=== PATIENT | female | born 1980 | race Caucasian/White ===

== ENCOUNTER 2016-09-15 00:23 | Emergency (ER) | payer MEDICARE, MEDICAID ==
--- NOTE | 2016-09-18 19:04 | ER ---
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 The patient states she had previous rashes and has been told that she has some allergy and she says that the rashes are mildly pruritic and she says that she is already on prednisone by urgent care since yesterday and it did not resolve the rashes. The patient denies any recent travel, any tick bite, and denies any joint pain or swelling. PHYSICAL EXAMINATION: VITAL SIGNS: The patient is afebrile. Vitals are stable. GENERAL: The patient is in no acute pain or distress. The patient is nontoxic. HEENT: Normal. There is no erythema or rash inside oropharynx. MUSCULOSKELETAL: In the trunk anterior and posterior, there is diffuse maculopapular rash, which is blanching and also some scattered rash on the upper and lower extremities. There are a few maculopapular rashes on the left palm too. CHEST: Normal clear bilateral breath sounds. HEART: Normal heart sounds. There are is no murmurs in the heart. ABDOMEN: Soft. There is no pulsatile mass in the abdomen. NECK: Soft, and negative meningismus signs. NEUROLOGICAL: Normal grossly. EMERGENCY ROOM COURSE: RPR was sent for the patient considering involvement of the palms. The patient is already on prednisone and Zyrtec and was advised to continue taking prednisone and follow up with the primary doctor and quite possibly track superintendent. At this stage, allergy reaction versus other causes like pityriasis rosea and even the infectious causes like Lyme and [place] spotted fever and even syphilis are during our differentials. The patient is stable and nontoxic and can be followed up as an outpatient. Ty Roberts MD/ kelly JOB #: [id number] CC: Ty Roberts MD, Attending Physician Joslyn Damon MD, Family Physician
== END 2016-09-15 01:22 | disposition home or self-care (01) ==
LOC: ER 00:23
DX: R21 Rash and other nonspecific skin eruption (principal); E03.9 Hypothyroidism, unspecified; Z98.890 Other specified postprocedural states; Z87.892 Personal history of anaphylaxis; Z79.899 Other long term (current) drug therapy

== ENCOUNTER → 2016-10-09 | Outpatient (CLI) | payer MEDICARE, MEDICAID | END | disposition home or self-care (01) | LOC: RAD.S 13:32 | DX: N63 Unspecified lump in breast (principal) ==